=== PATIENT | male | born 1965 | race Caucasian/White ===

== ENCOUNTER 2018-09-15 11:08 | Emergency (ER) | payer BC, OTHER ==
[2018-09-15] MEDS ORDERED: KETOROLAC 60 MG/2 ML VIAL IM STA (12:01)
[2018-09-15] MEDS ORDERED: diazePAM 5 MG TABLET PO STA (12:02)
[2018-09-15] MEDS ORDERED: DEXAMETHASONE 10 MG/ML VIAL PO STA (12:02)
--- NOTE | 2018-09-15 13:03 | ED Physician Documentation ---
PD HPI BACK PAIN - Stated complaint Stated Complaint: BACK INJ/PX - Chief complaint Chief Complaint: Back Pain - History obtained from History obtained from: Patient, Family - History of Present Illness Timing - onset: How many days ago (8) Timing - duration: Days (8) Timing - details: Other (Worse today.) Location: Lower Quality: Pain, Similar to prior episodes Associated symptoms: No: Fever, Weakness, Numbness, Incontinent of urine - Additional information Additional information: The patient is a 53-year-old male with past history of sciatica, who presents with right lower back pain. The pain started 8 days ago and has been waxing and waning since that time, until this morning when it became worse when he bent over to tie his shoes. He denies fever, urinary incontinence, numbness or weakness. The last time he had pain this bad in the past was about one year ago. Review of Systems Constitutional: denies: Fever Nose: denies: Congestion Respiratory: denies: Cough GI: denies: Abdominal Pain, Nausea, Vomiting : denies: Dysuria, Incontinent Skin: denies: Rash Musculoskeletal: reports: Back pain Neurologic: denies: Focal weakness, Numbness, Headache PD PAST MEDICAL HISTORY - Past Medical History Past Medical History: Yes Cardiovascular: Hypertension Respiratory: None Neuro: None Endocrine/Autoimmune: None GI: None : None HEENT: None Psych: None Musculoskeletal: None, Other (Sciatica) Derm: None - Past Surgical History Past Surgical History: Yes Ortho: Spine surgery, Other - Present Medications Home Medications: Ambulatory Orders Medication Instructions Recorded Confirmed Ondansetron Odt [Zofran] 4 mg TL Q6H PRN #14 tablet 08/30/16 Oxycodone HCl/Acetaminophen 1 - 2 each PO Q6H PRN #14 tablet 08/30/16 [Percocet 5-325 mg Tablet] Tamsulosin HCl [Flomax] 0.4 mg PO DAILY #10 tab 08/30/16 Cyclobenzaprine [Flexeril] 10 mg PO TID PRN #20 tablet 09/15/18 Oxycodone HCl/Acetaminophen 1 - 2 each PO Q6H PRN #14 tablet 09/15/18 [Percocet 5-325 mg Tablet] - Allergies Allergies/Adverse Reactions: Allergies Allergy/AdvReac Type Severity Reaction Status Date / Time No Known Drug Allergies Allergy Verified 09/15/18 11:34 - Social History Does the pt smoke?: No Smoking Status: Never smoker Does the pt drink ETOH?: Yes ETOH Use: Liquor Does the pt have substance abuse?: No - Immunizations Immunizations are current?: Yes - POLST Patient has POLST: No PD ED PE NORMAL - Vitals Vital signs reviewed: Yes (hypertensive) - General General: Alert and oriented X 3, Well developed/nourished, Other (Standing at the bedside, in apparent discomfort.) - HEENT HEENT: Atraumatic - Cardiac Cardiac: RRR - Respiratory Respiratory: No respiratory distress - Abdomen Abdomen: Soft, Non tender - Back Back: No CVA TTP, No spinal TTP, Other (Tenderness to palpation over the right sciatic region. No tenderness to palpation over the spinous processes.) - Derm Derm: No rash - Extremities Extremities: No edema, No calf tenderness / cord, Other (Straight leg raise test is positive on the right at 20 elevation; negative on the left.) - Neuro Neuro: Alert and oriented X 3, No motor deficit, No sensory deficit, Other (Deep tendon reflexes are 2+ and equal bilaterally at the patellar and Achilles tendons.) Results - Vitals Vitals: Oxygen O2 Source Room air PD MEDICAL DECISION MAKING - ED course Complexity details: reviewed old records, reviewed results, re-evaluated patient, considered differential, d/w patient, d/w family ED course: The patient's presentation is most consistent with recurrent lower back pain, with sciatica on the right. His presentation does not suggest epidural abscess, cauda equina syndrome, or spinal stenosis. Treatment in the emergency department included administration of ketorolac 60 mg IM, dexamethasone 10 mg orally, and diazepam 5 mg orally. He reports slightly decreased pain after the above treatment. He is being discharged with prescriptions for Flexeril and for Percocet. I discussed with him and his the expected course of illness, symptomatic treatment and outpatient follow-up, as well as potentially worrisome signs or symptoms that should prompt reevaluation in the emergency department. Departure - Departure Disposition: 01 Home, Self Care Clinical Impression: Back pain Qualifiers: Back pain location: low back pain Chronicity: acute Back pain laterality: right Sciatica presence: with sciatica Sciatica laterality: sciatica of right side Qualified Code(s): M54.41 - Lumbago with sciatica, right side Condition: Stable Instructions: ED Sciatica Follow-Up: Richy Saucedo MD [Primary Care Provider] - Prescriptions: Cyclobenzaprine [Flexeril] 10 mg PO TID PRN #20 tablet PRN Reason: Spasms Oxycodone HCl/Acetaminophen [Percocet 5-325 mg Tablet] 1 - 2 each PO Q6H PRN #14 tablet PRN Reason: pain Comments: Apply ice pack to your lower back intermittently for the next 3 days. You can use Flexeril as prescribed if needed for muscle spasms You can use Percocet as prescribed as needed for pain. You can also use ibuprofen, up to 800 mg 3 times daily for its anti-inflammatory effect. Let pain be your guide to activity level. Follow-up with your primary physician within 2 weeks. Call to schedule appointment. Return to the emergency department if you develop increasing pain, fever, increasing numbness or weakness, or otherwise worsening symptoms. Discharge Date/Time: 09/15/18 13:09
[2018-09-15 13:11] VITALS: BP 151/100
== END 2018-09-15 13:09 | disposition home or self-care (01) ==
LOC: ED 11:08
DX: M54.41 Lumbago with sciatica, right side (principal); I10 Essential (primary) hypertension
CPT/HCPCS: 96372; 99283; A9270

== ENCOUNTER 2020-12-23 18:50 | Outpatient (CLI) | payer OTHER | END 2020-12-23 18:51 | disposition critical access hospital (66) | LOC: EMS 18:50 | PROVIDERS: ATTEND Emergency Medicine | DX: M79.651 Pain in right thigh (principal) | CPT/HCPCS: A0425; A0427 ==

== ENCOUNTER 2020-12-23 19:23 | Emergency (ER) | payer OTHER ==
[2020-12-23] MEDS ORDERED: KETOROLAC 30 MG/ML VIAL IVP STA (19:47)
[2020-12-23 20:04] LABS: BASOPHILS % (AUTO) 0.5 %; EOSINOPHILS # (AUTO) 0.1 10^3/uL (0.0-0.7); EOSINOPHILS % (AUTO) 1.1 %; HCT - HEMATOCRIT 44.8 % (42.0-52.0); HGB - HEMOGLOBIN 15.4 g/dL (14.0-18.0); LYMPHOCYTES # (AUTO) 2.2 10^3/uL (1.5-3.5); LYMPHOCYTES % (AUTO) 24.5 %; MEAN CORPUSCULAR HEMOGLOBIN 33.6 pg (27.0-31.0); MEAN CORPUSCULAR HGB CONC 34.4 g/dL (32.0-36.0); MEAN CORPUSCULAR VOLUME 97.6 fL (80.0-94.0); MEAN PLATELET VOLUME 8.9 fL (7.4-11.4); MONOCYTES # (AUTO) 0.8 10^3/uL (0.0-1.0); MONOCYTES % (AUTO) 8.9 %; NEUTROPHILS # (AUTO) 5.7 10^3/uL (1.5-6.6); NEUTROPHILS % (AUTO) 64.5 %; PLT - PLATELET COUNT 230 10^3/uL (130-450); RED BLOOD COUNT 4.59 10^6/uL (4.70-6.10); RED CELL DISTRIBUTION WIDTH 12.1 % (12.0-15.0); WHITE BLOOD COUNT 8.9 x10^3/uL (4.8-10.8)
[2020-12-23 20:13] LABS: CALCIUM 9.3 mg/dL (8.5-10.3); CREATININE 0.8 mg/dL (0.6-1.2); POTASSIUM 3.6 mmol/L (3.5-5.0)
--- NOTE | 2020-12-23 20:49 | XRAY Report ---
PROCEDURE: Knee 3 View RT INDICATIONS: fall with distal femur/knee pain TECHNIQUE: 3 views of the right knee(s) were acquired. COMPARISON: None. FINDINGS: Bones: No fractures or dislocations. No suspicious bony lesions. Soft tissues: No joint effusion. No suspicious soft tissue calcifications. IMPRESSION: Negative examination as above Reviewed by: Jesus Manuel Red MD on 12/23/2020 8:47 PM PST Approved by: Jesus Manuel Red MD on 12/23/2020 8:47 PM PST Station ID: [id number]
--- NOTE | 2020-12-23 21:11 | ED Physician Documentation ---
PD HPI LOWER EXT INJURY - Stated complaint Stated Complaint: R LEG INJURY/GLF - Chief complaint Chief Complaint: Ext Problem - History obtained from History obtained from: Patient, EMS - History of Present Illness PD HPI LOW EXT INJURY LOCATION: Right, Upper leg, Knee Type of injury: Twist (He states he was walking his dog and his legs got wrapped in the leash and he twisted and fell with pain at the right quadriceps and knee. Unable to stand or walk because of weakness and pain around the knee.) Where injury occurred: Home Timing - onset: Today (shortly [employer]) Timing - details: Abrupt onset, Still present Worsened by: No: Moving, Palpating Associated symptoms: Weakness (unable to extend right knee due to weak/pain.). No: Numbness, Tingling Contributing factors: Other (no recent quinolones/abx.). No: Anticoagulated Similar symptoms before: Has not had sx before Recently seen: Not recently seen Review of Systems Constitutional: denies: Fever, Chills Nose: denies: Rhinorrhea / runny nose, Congestion Throat: denies: Sore throat Cardiac: denies: Chest pain / pressure Respiratory: denies: Cough GI: denies: Abdominal Pain Skin: denies: Abrasion (s), Laceration (s) Musculoskeletal: denies: Neck pain, Back pain Neurologic: denies: Altered mental status, Head injury, LOC PD PAST MEDICAL HISTORY - Past Medical History Past Medical History: Yes Cardiovascular: Hypertension, High cholesterol Respiratory: None Neuro: None Endocrine/Autoimmune: None GI: None : None HEENT: None Psych: None Musculoskeletal: None, Other Derm: None - Past Surgical History Past Surgical History: Yes Ortho: Spine surgery, Other - Present Medications Home Medications: Ambulatory Orders Medication Instructions Recorded Confirmed Ondansetron Odt [Zofran] 4 mg TL Q6H PRN #14 tablet 08/30/16 Oxycodone HCl/Acetaminophen 1 - 2 each PO Q6H PRN #14 tablet 08/30/16 [Percocet 5-325 mg Tablet] Tamsulosin HCl [Flomax] 0.4 mg PO DAILY #10 tab 08/30/16 Cyclobenzaprine [Flexeril] 10 mg PO TID PRN #20 tablet 09/15/18 Oxycodone HCl/Acetaminophen 1 - 2 each PO Q6H PRN #14 tablet 09/15/18 [Percocet 5-325 mg Tablet] Naproxen [EC-Naproxen] 500 mg PO BID #20 12/23/20 Oxycodone HCl/Acetaminophen 1 each PO Q6H PRN #15 tablet 12/23/20 [Percocet 5-325 mg Tablet] methocarbamoL [Robaxin] 500 mg PO Q6H PRN #25 tablet 12/23/20 - Allergies Allergies/Adverse Reactions: Allergies Allergy/AdvReac Type Severity Reaction Status Date / Time No Known Drug Allergies Allergy Verified 09/15/18 11:34 - Social History Does the pt smoke?: No Smoking Status: Never smoker Does the pt drink ETOH?: Yes Does the pt have substance abuse?: No - Immunizations Immunizations are current?: Yes - POLST Patient has POLST: No PD ED PE NORMAL - Vitals Vital signs reviewed: Yes - General General: Alert and oriented X 3, Well developed/nourished, Other (appears in pain due to right thigh/knee. ) - Neck Neck: Supple, no meningeal sign, No adenopathy - Cardiac Cardiac: RRR, No murmur - Respiratory Respiratory: Clear bilaterally, Other (no chestwall tenderness) - Abdomen Abdomen: Soft, Non tender - Derm Derm: Normal color, Warm and dry, No rash - Extremities Extremities: Other (The patient has tenderness at the suprapatellar area with a soft divot there where the quadriceps tendon should be. There is tenderness in the distal quadriceps muscle. No effusion at the knee. No obvious bony tenderness. He is unable to extend at the knee.) - Neuro Neuro: Alert and oriented X 3, No sensory deficit, Normal speech Results - Vitals Vitals: Vital Signs - 24 hr 12/23/20 12/23/20 19:48 21:40 Temperature 36.4 C L Heart Rate 90 92 Respiratory 17 14 Rate Blood Pressure 136/84 H 156/91 H O2 Saturation 97 95 Oxygen O2 Source Room air - Labs Labs: Laboratory Tests 12/23/20 12/23/20 19:56 19:56 WBC 8.9 RBC 4.59 L Hgb 15.4 Hct 44.8 MCV 97.6 H MCH 33.6 H MCHC 34.4 RDW 12.1 Plt Count 230 MPV 8.9 Neut # (Auto) 5.7 Lymph # (Auto) 2.2 [place] # (Auto) 0.8 Eos # (Auto) 0.1 Baso # (Auto) 0.0 Absolute Nucleated RBC 0.00 Nucleated RBC % 0.0 Sodium 140 Potassium 3.6 Chloride 104 Carbon Dioxide 22 Anion Gap 14.0 H BUN 16 Creatinine 0.8 Estimated GFR (MDRD) 101 Glucose 189 H Calcium 9.3 - Rads (name of study) right knee Radiology: Prelim report reviewed (no fractures), See rad report PD MEDICAL DECISION MAKING - ED course Complexity details: considered differential (clinically clearly quads tendon disruption), d/w patient, d/w production support consultant (Talked with Dr. Vanessa and on-call for orthopedics who will have his office call the patient tomorrow and he will see him in 2 days in clinic for preop planning.) Departure - Departure Disposition: Home, Self Care Clinical Impression: Fall from slip, trip, or stumble Qualifiers: Encounter type: initial encounter Qualified Code(s): W01.0XXA - Fall on same level from slipping, tripping and stumbling without subsequent striking against object, initial encounter Quadriceps tendon rupture Qualifiers: Encounter type: initial encounter Laterality: right Qualified Code(s): S76.111A - Strain of right quadriceps muscle, fascia and tendon, initial encounter Condition: Stable Record reviewed to determine appropriate education?: Yes Instructions: ED Sprain Knee Follow-Up: Abhay Rhoades MD [Provider Admit Priv/Credential] - Prescriptions: Naproxen [EC-Naproxen] 500 mg PO BID #20 Oxycodone HCl/Acetaminophen [Percocet 5-325 mg Tablet] 1 each PO Q6H PRN #15 tablet PRN Reason: pain methocarbamoL [Robaxin] 500 mg PO Q6H PRN #25 tablet PRN Reason: Spasms Comments: Keep the knee brace in place. You can remove it briefly to change your clothes. Ice elevate and rest your knee often to reduce swelling. Dr. Rhoades's office will call you tomorrow to give you an appointment time for . At that point they will reexamine you and us cough scheduling time for surgery. You have a disruption/tear of the quadriceps tendon just above the knee. This will need repair in order to heal appropriately. You can use some anti-inflammatory such as naproxen twice daily with food. Robaxin muscle relaxant for spasms. To that add Tylenol or oxycodone as needed for pains. Discharge Date/Time: 12/23/20 21:41
[2020-12-23] MEDS ORDERED: HYDROmorphone 1 MG/ML CARPUJECT IVP STA (21:19)
[2020-12-23] MEDS ORDERED: oxyCODONE/ACET 5/325 Prepack 4 PO STA (21:20)
[2020-12-23 21:42] VITALS: BP 156/91
== END 2020-12-23 21:41 | disposition home or self-care (01) ==
LOC: EDUNIT# → ED 19:23
DX: S76.111A Strain of right quadriceps muscle, fascia and tendon, initial encounter (principal); X50.1XXA Overexertion from prolonged static or awkward postures, initial encounter; Y93.K1 Activity, walking an animal; Y92.009 Unspecified place in unspecified non-institutional (private) residence as the place of occurrence of the external cause; I10 Essential (primary) hypertension
CPT/HCPCS: 36415; 73562; 80048; 85025; 96374; 96375; 99284; J1170

== ENCOUNTER 2020-12-26 07:35 | Day surgery (SDC) | payer OTHER ==
[2020-12-26] MEDS ORDERED: ACETAMINOPHEN 1,000 MG/100 ML 100 ML IV ONE (07:54)
[2020-12-26] MEDS ORDERED: CELECOXIB 100 MG CAPSULE PO ONE (07:54)
[2020-12-26] MEDS ORDERED: ceFAZolin 2 GM/50 ML 2 GM/50 ML BAG IV ONE (07:54)
[2020-12-26] MEDS ORDERED: LACTATED RINGERS 1,000 ML IV ONE ×2 (08:08→13:00)
--- NOTE | 2020-12-26 08:40 | ANESTHESIA ---
Pre-Anesthesia VS, & Labs - Diagnosis rupture quadriceps tendon right knee - Procedure repair quadriceps tendon right knee Vital Signs: Temp Pulse Resp BP Pulse Ox 37.0 C 85 16 142/88 H 97 12/26/20 07:58 12/26/20 07:58 12/26/20 07:58 12/26/20 07:58 12/26/20 07:58 Height: 5 ft 6 in Weight (kg): 102.8 kg Body Mass Index: 36.6 BMI Classification: Obese - NPO >8 hours - Lab Results Current Lab Results: Laboratory Tests 12/26/20 08:04: POC Whole Bld Glucose 218 H Home Medications and Allergies Home Medications: Ambulatory Orders Atorvastatin [Lipitor] 40 mg PO DAILY 12/25/20 Losartan [Cozaar] 12.5 mg PO DAILY 12/25/20 Naproxen [EC-Naproxen] 500 mg PO DAILY 12/25/20 amLODIPine [Norvasc] 5 mg PO DAILY 12/25/20 Atorvastatin [Lipitor] 40 mg PO DAILY 12/25/20 Losartan [Cozaar] 12.5 mg PO DAILY 12/25/20 Naproxen [EC-Naproxen] 500 mg PO DAILY 12/25/20 amLODIPine [Norvasc] 5 mg PO DAILY 12/25/20 Allergies/Adverse Reactions: Allergies Allergy/AdvReac Type Severity Reaction Status Date / Time No Known Drug Allergies Allergy Verified 09/15/18 11:34 Anes History & Medical History - Anesthetic History Anesthesia Complications: reports: No previous complications - Medical History Cardiovascular: reports: Hypertension, High cholesterol Pulmonary: reports: None Gastrointestinal: reports: Chronic constipation Urinary: reports: None Neuro: reports: None Musculoskeletal: reports: None Endocrine/Autoimmune: reports: None Blood Disorders: reports: None Skin: reports: None Smoking Status: Never smoker Psychosocial: reports: Alcohol (daily use), Cannabis History of Cancer?: No - Surgical History Orthopedic: reports: Spine surgery, Other Exam General: Alert, Oriented x3, Cooperative, No acute distress Dental: WNL Mouth Openin Fingerbreadth Neck Mobility: Normal Mallampati classification: II Thyromental Distance: 4-6 cm Respiratory: Lungs clear, Normal breath sounds, No respiratory distress, No accessory muscle use Cardiovascular: Regular rate, Normal S1, Normal S2, No murmurs Mental/Cognitive Status: Alert/Oriented X3, Normal for patient Plan Anesthesia Type: General, Femoral Block (right) Regional Block: Per Surgeon's request for Post Op pain control Consent for Procedure(s) Verified and Reviewed: Yes Code Status: Attempt Resuscitation ASA classification: 2-Mild systemic disease Is this case an emergency?: No
[2020-12-26 08:47] LABS: B. PARAPERTUSSIS- RESP PCR PAN NOT DETECTED; B. PERTUSSIS- RESP PCR PANEL NOT DETECTED; C. PNEUMONIAE- RESP PCR PANEL NOT DETECTED; CORONAVIRUS 229E-RESP PCR NOT DETECTED; CORONAVIRUS HKU1-RESP PCR NOT DETECTED; CORONAVIRUS NL63-RESP PCR NOT DETECTED; CORONAVIRUS OC43-RESP PCR NOT DETECTED; HUMAN METAPNEUMOVIRUS NOT DETECTED; INFLUENZA A- RESP PCR PANEL NOT DETECTED; INFLUENZA B - RESP PCR PANEL NOT DETECTED; M. PNEUMONIAE- RESP PCR PANEL NOT DETECTED; PARAINFLUENZA VIRUS 1 NOT DETECTED; PARAINFLUENZA VIRUS 2 NOT DETECTED; PARAINFLUENZA VIRUS 3 NOT DETECTED; PARAINFLUENZA VIRUS 4 NOT DETECTED; RHINOVIRUS/ENTEROVIRUS NOT DETECTED; RSV- RESP PCR PANEL NOT DETECTED; SARS-CoV-2 -RESP PCR PANEL NOT DETECTED
[2020-12-26] MEDS ORDERED: MIDAZOLAM 2 MG/2 ML VIAL ONE (10:33)
[2020-12-26] MEDS ORDERED: fentaNYL 100 MCG/2 ML VIAL ONE ×2 (10:33→11:36)
[2020-12-26] MEDS ORDERED: PROPOFOL 200 MG/20 ML VIAL IVP ONE ×2 (10:36→11:11)
[2020-12-26] MEDS ORDERED: LIDOCAINE-MPF 2% 5 ML VIAL ONE (10:36)
[2020-12-26] MEDS ORDERED: ROPIVACAINE 0.5% PF 20 ML AMPULE ONE (10:39)
[2020-12-26] MEDS ORDERED: DEXAMETHASONE 10 MG/ML VIAL ONE (10:51)
[2020-12-26] MEDS ORDERED: ONDANSETRON 4 MG/2 ML VIAL ONE (11:20)
[2020-12-26] MEDS ORDERED: DEXAMETHASONE 4 MG/ML VIAL ONE (11:20)
[2020-12-26] MEDS ORDERED: ONDANSETRON 4 MG/2 ML VIAL IVP PRN (11:27)
[2020-12-26] MEDS ORDERED: ATROPINE ABBOJECT 1 MG/10 ML SYRINGE IVP PRN (11:27)
[2020-12-26] MEDS ORDERED: NALOXONE 0.4 MG/ML VIAL IVP PRN (11:27)
[2020-12-26] MEDS ORDERED: METOCLOPRAMIDE 10 MG/2 ML VIAL IVP PRN (11:27)
[2020-12-26] MEDS ORDERED: MORPHINE 2 MG/ML CARPUJECT IVP PRN (11:27)
[2020-12-26] MEDS ORDERED: ePHEDrine 50 MG/ML VIAL IVP PRN (11:27)
[2020-12-26] MEDS ORDERED: HYDROmorphone 0.5 MG/0.5 ML SYRINGE IVP PRN (11:27)
[2020-12-26] MEDS ORDERED: fentaNYL 100 MCG/2 ML VIAL IVP PRN (11:27)
[2020-12-26] MEDS ORDERED: BUPIVACAINE 0.5% PF 30 ML VIAL ONE (11:32)
[2020-12-26] MEDS ORDERED: BUPIVACAINE 0.5% PF 30 ML VIAL INFIL ONE ×2 (11:32)
[2020-12-26] MEDS ORDERED: LACTATED RINGERS 1,000 ML IV SCH (12:00)
[2020-12-26] MEDS ORDERED: KETOROLAC 30 MG/ML VIAL ONE (13:00)
--- NOTE | 2020-12-26 13:05 | OPERATIVE REPORT ---
Operative Report - General Procedure Date: 12/26/20 Planned Procedure: Repair of quadriceps tendon rupture right knee Pre-Op Diagnosis: Complete rupture quadriceps tendon right knee Procedure Performed: Repair of quadriceps tendon rupture right knee Post Op Diagnosis: Same as preoperative diagnosis - Procedure Note Primary Surgeon: Abhay Rhoades MD Anesthesia Provider: Darrell Vargas CRNA Anesthesia Technique: General ET tube, Regional block Estimated Blood Loss (mL): 50 Indications: This is a 55-year-old man who took a fall and sustained isolated pain and swelling to the right knee. He had palpable defect above the patella with inability to actively extend right knee and this was associated with marked pain. His routine radiographs were normal to right knee. He is normally active in terms of walking and activities. Findings: There was a complete quadriceps tendon rupture just within 2 cm or less of the patella. There was a hematoma at the rupture site. Complications: None - Other Other Information/Narrative: Patient was brought to the operating room table placed in a supine position with a padded bump beneath the right buttock. A pneumatic tourniquet was applied to the proximal right thigh was not utilized during the procedure. The right lower extremity was prepped and draped in a sterile manner in the usual fashion. A timeout procedure was performed by the entire operating room team and all were in agreement. A midline longitudinal incision was made over the anterior aspect of the knee and patella. The quadriceps tendon rupture was easily identified with relatively large hematoma that was evacuated at the rupture site. The superior pole of the patella was freshened with a curette and rongeur to obtain a cancellous surface. 3 drill holes were made from proximal to distal using a 2.5 mm drill bit. The drill bits exited in the proximal patellar tendon. #5 Arthrex FiberWire suture was then placed using a Krakw locking stitch from proximal to distal. 4 strands of suture were placed. The sutures were then taken through the patellar tunnels. The central drill hole had 2 sutures which were passed from proximal to distal using a suture passer. The sutures were tied with the knee in extension. The medial lateral retinaculum was repaired with #1 Vicryl suture. The subcutaneous tissue was closed with 2-0 Vicryl. The skin was closed with stainless steel edy. Xeroform and a sterile dressing was applied to the incision. A well-padded long leg splint was applied to the right knee to hold the knee in near full extension. The knee was stable at the end of the procedure and had easily 45 to 50 degrees of flexion. He tolerated the procedure well.
[2020-12-26] MEDS ORDERED: HYDROcod/ACETAM 10 MG/325 MG TABLET PO PRN ×2 (13:12→13:26)
[2020-12-26] MEDS ORDERED: HYDROcod/ACETAM 5/325 MG TABLET PO PRN ×2 (13:12→13:26)
[2020-12-26] MEDS ORDERED: KETOROLAC 15 MG/ML VIAL IVP STA (13:26)
--- NOTE | 2020-12-26 13:43 | ANESTHESIA POST OP EVALUATION ---
Anesthesia Post Eval - Post Anesthesia Eval Vitals: Last Vital Signs Temp 36.9 C 12/26/20 13:20 Pulse 89 12/26/20 13:31 Resp 94 H 12/26/20 13:31 BP 127/91 H 12/26/20 13:31 Pulse Ox 17 L 12/26/20 13:31 CV Function Including HR & BP: positive: Stable Pain Control: positive: Satisfactory Nausea & Vomiting: positive: Negative Mental Status: positive: Baseline Respiratory Status: Airway Patent Hydration Status: Satisfactory Anesthesia Complications: positive: None
[2020-12-26 14:30] VITALS: BP 138/74
== END 2020-12-26 07:36 | disposition home or self-care (01) ==
LOC: SDS 07:35
PROVIDERS: ATTEND Orthopaedic Surgery
PROC: 0KQQ0ZZ Repair Right Upper Leg Muscle, Open Approach (ICD-10-PCS; principal; 2020-12-26 10:00)
DX: S76.111A Strain of right quadriceps muscle, fascia and tendon, initial encounter (principal); W10.9XXA Fall (on) (from) unspecified stairs and steps, initial encounter; Y92.008 Other place in unspecified non-institutional (private) residence as the place of occurrence of the external cause; I10 Essential (primary) hypertension; J45.909 Unspecified asthma, uncomplicated; M51.36 Other intervertebral disc degeneration, lumbar region; E78.00 Pure hypercholesterolemia, unspecified; Z72.89 Other problems related to lifestyle; E66.9 Obesity, unspecified; Z68.36 Body mass index [BMI] 36.0-36.9, adult; Z20.822 Contact with and (suspected) exposure to COVID-19; Z79.899 Other long term (current) drug therapy; Z87.891 Personal history of nicotine dependence
CPT/HCPCS: 0202U; 27385; A9270; J0131; J0690; J7120

== ENCOUNTER 2021-01-23 07:12 | Outpatient (CLI) | payer OTHER ==
--- NOTE | 2021-01-23 08:52 | XRAY Report ---
PROCEDURE: Knee Standing RT INDICATIONS: QUADRICEP TENDON RUPTURE TECHNIQUE: Right knee. COMPARISON: 12/23/2020 FINDINGS: Bones: No acute fractures or dislocations. No suspicious bony lesions. Joint spaces appear normal with weightbearing. Soft tissues: There is soft tissue swelling a moderate-sized right joint effusion. No suspicious soft tissue calcification. IMPRESSION: 1. No acute osseous abnormality. 2. Soft tissue swelling in right joint effusion. Reviewed by: Fortino Luna on 01/23/2021 8:50 AM PDT Approved by: Fortino Luna on 01/23/2021 8:50 AM PDT Station ID: [id number]
== END 2021-01-23 23:59 | disposition home or self-care (01) ==
LOC: DI.N 07:12
PROVIDERS: ATTEND Physician Assistant
DX: M66.88 Spontaneous rupture of other tendons, other sites (principal); M25.461 Effusion, right knee

== ENCOUNTER 2023-02-21 07:00 | Outpatient (CLI) | payer OTHER ==
--- NOTE | 2023-02-21 16:36 | XRAY Report ---
PROCEDURE: Chest 2 View X-Ray INDICATIONS: DYSPHAGIA TECHNIQUE: 2 views of the chest were acquired. COMPARISON: None. FINDINGS: Surgical changes and devices: None. Lungs and pleura: No pleural effusions or pneumothorax. Lungs are clear. Mediastinum: Mediastinal contours appear normal. Heart size is normal. Bones and chest wall: No suspicious bony lesions. Overlying soft tissues appear unremarkable. IMPRESSION: No acute process. Reviewed by: Milan Izquierdo MD on 02/21/2023 4:35 PM PDT Approved by: Milan Izquierdo MD on 02/21/2023 4:35 PM PDT Station ID: [id number]
== END 2023-02-21 23:59 | disposition home or self-care (01) ==
LOC: DI.S 07:00
PROVIDERS: ATTEND Emergency Medicine
DX: R13.10 Dysphagia, unspecified (principal)

== ENCOUNTER 2023-08-30 10:56 | Outpatient (CLI) | payer OTHER ==
--- NOTE | 2023-08-30 14:43 | XRAY Report ---
PROCEDURE: Ribs w/PA Chest LT INDICATIONS: SMALL CELL LUNG CARCINOMA TECHNIQUE: 2 views of the left ribs were acquired, along with a single view chest. COMPARISON: 02/21/2023 FINDINGS: Surgical changes and devices: Right IJ Mediport. Bones and chest wall: No fractures or dislocations. No suspicious bony lesions. Overlying soft tis sues appear unremarkable. Lungs and pleura: No pleural effusions or pneumothorax. Lungs appear clear. Mediastinum: Mediastinal contours appear normal. Heart size is normal. IMPRESSION: No suspicious bone lesions or rib fracture. No changes in the underlying lung. Reviewed by: Yi Chaudhry MD on 08/30/2023 2:42 PM PST Approved by: Yi Chaudhry MD on 08/30/2023 2:42 PM PST Station ID: [id number]
== END 2023-08-30 10:57 | disposition home or self-care (01) ==
LOC: DI 10:56
PROVIDERS: ATTEND Internal Medicine Hematology & Oncology
DX: R53.83 Other fatigue (principal); R07.81 Pleurodynia; Z92.3 Personal history of irradiation; C34.90 Malignant neoplasm of unspecified part of unspecified bronchus or lung

== ENCOUNTER 2023-09-23 04:16 | Outpatient (CLI) | payer OTHER | END 2023-09-23 04:17 | disposition critical access hospital (66) | LOC: EMS 04:16 | DX: R10.84 Generalized abdominal pain (principal) | CPT/HCPCS: A0425; A0427 ==

== ENCOUNTER 2023-09-23 04:51 | Emergency (ER) | payer OTHER ==
[2023-09-23 05:07] LABS: HCT - HEMATOCRIT 47.5 % (42.0-52.0); HGB - HEMOGLOBIN 15.4 g/dL (14.0-18.0); LYMPHOCYTES # (AUTO) 0.4 10^3/uL (1.5-3.5); LYMPHOCYTES % (AUTO) 11.3 %; MEAN CORPUSCULAR HEMOGLOBIN 30.7 pg (27.0-31.0); MEAN CORPUSCULAR HGB CONC 32.4 g/dL (32.0-36.0); MEAN CORPUSCULAR VOLUME 94.8 fL (80.0-94.0); MEAN PLATELET VOLUME 10.1 fL (7.4-11.4); MONOCYTES # (AUTO) 0.5 10^3/uL (0.0-1.0); MONOCYTES % (AUTO) 15.9 %; NEUTROPHILS # (AUTO) 2.2 10^3/uL (1.5-6.6); NEUTROPHILS % (AUTO) 70.2 %; PLT - PLATELET COUNT 91 10^3/uL (130-450); RED BLOOD COUNT 5.01 10^6/uL (4.70-6.10); RED CELL DISTRIBUTION WIDTH 16.1 % (12.0-15.0); WHITE BLOOD COUNT 3.1 x10^3/uL (4.8-10.8)
[2023-09-23] MEDS ORDERED: ONDANSETRON 4 MG/2 ML VIAL IVP STA (05:08)
[2023-09-23 05:19] LABS: ALBUMIN 3.8 g/dL (3.2-5.5); ALBUMIN/GLOBULIN RATIO 1.3 (1.0-2.2); BILIRUBIN,TOTAL 0.4 mg/dL (0.2-1.0); CALCIUM 11.7 mg/dL (8.5-10.3); CREATININE 0.6 mg/dL (0.6-1.3); POTASSIUM 3.4 mmol/L (3.5-4.5); TOTAL PROTEIN 6.8 g/dL (6.4-8.9)
[2023-09-23] MEDS ORDERED: HYDROmorphone 1 MG/ML CARPUJECT IVP STA (05:21)
[2023-09-23] MEDS ORDERED: SODIUM CHLORIDE 0.9% 1,000 ML IV STA (05:22)
[2023-09-23] MEDS ORDERED: iohexoL-300 100 ML VIAL IVP ONE (06:25)
--- NOTE | 2023-09-23 06:34 | ED Physician Documentation ---
History of Present Illness - Stated complaint Stated Complaint: ABD PAIN, CA - Chief complaint Chief Complaint: Abd Pain - History obtained from History obtained from: Patient - Additonal information Additional information: 58yM with pmh metastatic cancer (brain, liver, stomach) s/p chemo and radiation, completed a couple weeks ago, p/w diffuse abdominal pain since that time that is severe, constant, aching, nonradiating. also with nbnb n/v, though patient denies nausea at present. denies fever, diarrhea, hematemesis, uri symptoms, urinary sx. PD PAST MEDICAL HISTORY - Past Medical History Cardiovascular: Hypertension, High cholesterol Respiratory: None Neuro: None Endocrine/Autoimmune: None GI: Chronic constipation : None HEENT: Chronic vision loss Psych: None Musculoskeletal: None Derm: None - Past Surgical History Past Surgical History: Yes Ortho: Spine surgery, Other - Present Medications Home Medications: Ambulatory Orders Medication Instructions Recorded Confirmed Ondansetron Odt [Zofran] 4 mg TL Q6H PRN #14 tablet 08/30/16 07/25/23 Cyclobenzaprine [Flexeril] 10 mg PO TID PRN #20 tablet 09/15/18 07/25/23 Naproxen [EC-Naproxen] 500 mg PO BID #20 12/23/20 07/25/23 Oxycodone HCl/Acetaminophen 1 each PO Q6H PRN #15 tablet 12/23/20 07/25/23 [Percocet 5-325 mg Tablet] methocarbamoL [Robaxin] 500 mg PO Q6H PRN #25 tablet 12/23/20 07/25/23 Atorvastatin [Lipitor] 40 mg PO DAILY 12/25/20 07/25/23 Losartan [Cozaar] 12.5 mg PO DAILY 12/25/20 07/25/23 Naproxen [EC-Naproxen] 500 mg PO DAILY 12/25/20 07/25/23 amLODIPine [Norvasc] 5 mg PO DAILY 12/25/20 07/25/23 OLANZapine [Olanzapine] 5 mg PO DAILY PRN 04/12/23 07/25/23 Lidocaine/Prilocain 2.5% Cream 5 gm TOP PRN PRN 04/25/23 07/25/23 [Emla 2.5% Cream] Omeprazole 20 mg PO DAILY 09/05/23 09/05/23 Sucralfate [Carafate] 1 gm PO PRN PRN 09/05/23 09/05/23 HYDROcodone/ACET 10/325 [[place] 10 1 tablet PO Q4-6H PRN #30 tablet 09/23/23 mg/325 mg] Sennosides/Docusate Sodium 1 each PO QDAC PRN #30 tablet 09/23/23 [Senna-Docusate Sodium Tablet] polyethylene glycoL 3350 [Miralax] 17 gm PO DAILY #15 packet 09/23/23 - Allergies Allergies/Adverse Reactions: Allergies Allergy/AdvReac Type Severity Reaction Status Date / Time No Known Drug Allergies Allergy Verified 05/16/23 12:17 - Social History Does the pt smoke?: No Smoking Status: Never smoker Does the pt drink ETOH?: Yes Does the pt have substance abuse?: No - Immunizations Immunizations are current?: Yes - POLST Patient has POLST: No PD ED PE NORMAL - Vitals Vital signs reviewed: Yes - General General: Alert and oriented X 3, Other (deconditioned appearing) - HEENT HEENT: Atraumatic, PERRL, EOMI - Neck Neck: Supple, no meningeal sign - Cardiac Cardiac: RRR - Respiratory Respiratory: No respiratory distress, Clear bilaterally - Abdomen Abdomen: Other (diffusely ttp) - Derm Derm: Normal color, Warm and dry - Neuro Neuro: No motor deficit, No sensory deficit - Psych Psych: Normal mood, Normal affect Results - Vitals Vitals: Vital Signs - 24 hr 09/23/23 09/23/23 04:56 06:43 Temperature 37 C 36.8 C Heart Rate 89 72 Respiratory 20 20 Rate Blood Pressure 138/74 H 130/74 O2 Saturation 92 100 Oxygen O2 Source Room air - Labs Labs: Laboratory Tests 09/23/23 09/23/23 09/23/23 05:00 05:00 06:22 WBC 3.1 L RBC 5.01 Hgb 15.4 Hct 47.5 MCV 94.8 H MCH 30.7 MCHC 32.4 RDW 16.1 H Plt Count 91 L MPV 10.1 Neut # (Auto) 2.2 Lymph # (Auto) 0.4 L [place] # (Auto) 0.5 Eos # (Auto) 0.0 Baso # (Auto) 0.0 Absolute Nucleated RBC 0.00 Nucleated RBC % 0.0 Sodium 139 Potassium 3.4 L Chloride 101 Carbon Dioxide 29 Anion Gap 9.0 BUN 14 Creatinine 0.6 Estimated GFR (MDRD) 139 Glucose 212 H Calcium 11.7 H Total Bilirubin 0.4 AST 67 H ALT 67 H Alkaline Phosphatase 177 H Total Protein 6.8 Albumin 3.8 Globulin 3.0 Albumin/Globulin Ratio 1.3 Lipase 45 Urine Color YELLOW Urine Clarity HAZY Urine pH 6.0 Ur Specific [place] <=1.005 Urine Protein NEGATIVE Urine Glucose (UA) NEGATIVE Urine Ketones NEGATIVE Urine Occult Blood NEGATIVE Urine Nitrite NEGATIVE Urine Bilirubin NEGATIVE Urine Urobilinogen 0.2 (NORMAL) Ur Leukocyte Esterase NEGATIVE Urine RBC 0-5 Urine WBC 0-3 Ur Squamous Epith Cells NONE SEEN Amorphous Sediment Few Urine Bacteria None Seen Urine Casts 0-2 Hyaline Casts Ur Microscopic Review INDICATED Urine Culture Comments NOT INDICATED PD Medical Decision Making - ED course ED course: 58yM presents to the ED with chronic cancer pain to abdomen for the past couple weeks. cbc, abdominal panel stable from previous except for new hypercalcemia, likely cancer related. calcium 11.7. patient had improvement in pain s/p 1mg IV dilaudid. repeat abdominal exam nontender. IVF ordered and CT a/p ordered. CT shows incidental intussusception as well as large stool burden in addition to metastatic cancer. pain well controlled therefore plan to f/u outpatient with his oncologist. Prescriptions for stool regimen and pain medication sent to pharmacy. Return precautions given. Departure - Departure Disposition: 01 Home, Self Care Clinical Impression: Abdominal pain, Metastatic cancer to bone, Stomach cancer, Hypercalcemia, Constipation Condition: Stable Instructions: Abdominal Pain Prescriptions: polyethylene glycoL 3350 [Miralax] 17 gm PO DAILY #15 packet HYDROcodone/ACET 10/325 [[place] 10 mg/325 mg] 1 tablet PO Q4-6H PRN #30 tablet PRN Reason: Pain >8 Sennosides/Docusate Sodium [Senna-Docusate Sodium Tablet] 1 each PO QDAC PRN #30 tablet PRN Reason: Constipation Comments: You were seen in the emergency department for abdominal pain and received IV dilaudid. Your CT showed metastatic cancer, some incidental gut shortening, and a large amount of stool. Prescription for pain medicine and stool regimen sent to [facility]. Please follow-up with your Oncologist and return to the emergency department if you have any new or worsening symptoms or other concerns. Forms: PCP List
[2023-09-23 06:38] LABS: BILIRUBIN,URINE NEGATIVE (NEGATIVE); GLUCOSE, URINE (UA) NEGATIVE (NEGATIVE); KETONES,URINE (UA) NEGATIVE (NEGATIVE); LEUKOCYTE ESTERASE, URINE NEGATIVE (NEGATIVE); NITRITE,URINE NEGATIVE (NEGATIVE); OCCULT BLOOD,URINE NEGATIVE (NEGATIVE); PROTEIN,URINE NEGATIVE (NEGATIVE); UROBILINOGEN,URINE 0.2 (NORMAL) E.U./dL (NORMAL)
[2023-09-23 06:46] VITALS: BP 130/74; O2SAT 100
[2023-09-23 06:46] LABS: CLARITY,URINE HAZY (CLEAR)
[2023-09-23 06:47] LABS: AMORPHOUS SEDIMENT,UR Few /LPF; BACTERIA,URINE None Seen /HPF (None Seen); RBC,URINE 0-5 /HPF (0-5); SQUAMOUS EPITHELIAL CELL,UR NONE SEEN (<= Few); WBC,URINE 0-3 /HPF (0-3)
--- NOTE | 2023-09-23 09:25 | CT Report ---
PROCEDURE: ABDOMEN/PELVIS W INDICATIONS: diffuse abdominal pain, hx stomach cancer CONTRAST: Omni 300 100ml TECHNIQUE: After the administration of IV contrast, 5 mm thick sections acquired from the diaphragms to the symp hysis. 5 mm thick coronal and sagittal reformats were acquired. For radiation dose reduction, the f ollowing was used: automated exposure control, adjustment of mA and/or kV according to patient size. COMPARISON: CT abdomen and pelvis, 08/30/2016 FINDINGS: Image quality: Excellent. Lung bases and heart: Bibasilar atelectasis. There is fluid and mild distention of the distal esopha magnus. Liver: There are vague hepatic hypodensities, suspicious for liver metastases. Gallbladder and biliary tree: Spleen: No splenomegaly. Pancreas: No pancreatic ductal dilation. Adrenals: No adrenal nodule. Kidneys and ureters: No hydronephrosis. No renal cystic lesion which requires follow up. No solid mas s. Bowel and peritoneum: There are masses in the gastric cardia and gastroesophageal junction. -Gastric cardia mass; series 2 image 18; measuring 2.4 cm. -Gastric cardia mass; series 2 image 21l; measuring 2.6 x 2.2 cm -GE junction mass; series 2 image 18; measuring 1.7 x 3.1 cm No bowel distension. 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 "Target" appearance of a loop of small intestine in the right mid abdomen, consistent with transient intussusception. No findi ngs to suggest small bowel obstruction. No pathologic free fluid. There is a large amount stool in co villa. Sigmoid diverticulosis without diverticulitis. Lymph nodes: Enlarged lymph nodes are present upper abdomen. -A rola mass left of the aorta adjacent to the SMA above the renal vein measuring 4.9 x 3.0 cm; seri es 2 image 30. Vessels: No infrarenal aortic aneurysm. PELVIS Reproductive organs: Unremarkable. Bladder: No abnormal wall thickening, accounting for underdistension. Pelvic lymph nodes: No pelvic adenopathy by size criteria. Bones: There are innumerable small lytic bone lesions involving the inferior sternum, visualized lowe r thoracic spine, lumbar spine, sacrum, bony pelvis, multiple ribs bilaterally, possibly left proxima l femurs bilaterally, consistent with osseous metastasis,. Other: No significant ventral or inguinal hernia. IMPRESSION: 1. Masses in gastric cardia and GE junction consistent with neoplasm. 2. Lymphadenopathy in upper abdomen consistent with rola metastases. 3. Extensive osseous metastatic disease. 4. Multiple vague hypodense lesions in liver suspicious for hepatic metastases. 5. Fluid-filled distal esophagus with mild distention. Differential diagnoses are low grade GE juncti on obstruction versus gastroesophageal reflux. 6. Congenital intestinal malrotation. No significant discrepancy with the preliminary interpretation. Reviewed by: Anson Butler MD on 09/23/2023 9:24 AM PST Approved by: Anson Butler MD on 09/23/2023 9:24 AM PST Station ID: [id number]
== END 2023-09-23 08:25 | disposition home or self-care (01) ==
LOC: EDUNIT# → ED 04:51
DX: G89.3 Neoplasm related pain (acute) (chronic) (principal); R10.9 Unspecified abdominal pain; E83.52 Hypercalcemia; K59.00 Constipation, unspecified; C16.9 Malignant neoplasm of stomach, unspecified; C79.51 Secondary malignant neoplasm of bone
CPT/HCPCS: 36415; 74177; 80053; 81001; 83690; 85025; 96361; 96374; 96375; 99284; J1170; Q9967; 81003; 87086

== ENCOUNTER 2023-09-24 00:16 | Outpatient (CLI) | payer OTHER | END 2023-09-24 23:59 | disposition critical access hospital (66) | LOC: EMS 00:16 | DX: G89.3 Neoplasm related pain (acute) (chronic) (principal); R19.8 Other specified symptoms and signs involving the digestive system and abdomen | CPT/HCPCS: A0425; A0427 ==

== ENCOUNTER 2023-09-24 00:50 | Emergency (ER) | payer OTHER ==
--- NOTE | 2023-09-24 00:49 | ED Physician Documentation ---
PD HPI ABD PAIN - Stated complaint Stated Complaint: ABD/L FLANK PX - History obtained from History obtained from: Patient, EMS - History of Present Illness Recently seen: Emergency Dept - Additional information Additional information: RUPERT. HPI from patient. Patient was treated and released from this emergency department yesterday for similar complaints. He returns due to ongoing abdominal pain, diffuse, described as cramping, waxing and waning without apparent exacerbating or ameliorating factors. He notes that tonight, the pain is more pronounced in the left flank and left paralumbar area. He feels he might be constipated, has not had a bowel movement in 2 days. Patient's pain this evening was as high as 10 out of 10, patient says it is a 6 out of 10 on arrival after having received a total of 8 mg morphine sulfate IV by EMS. Patient had blood tests and CT of the abdomen pelvis yesterday in the emergency department. There were number of abnormalities, although none of them seem to explain the pain he was having. He was prescribed multiple medications including Vicodin, which she was able to obtain, and MiraLAX, which was not ready when the picked up the medications and thus patient has not yet had any of the MiraLAX as of yet. He did take 2 Dulcolax earlier this evening without results. He denies fever, denies nausea/vomiting. 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 Despite the pathology of the biopsied mass, he has not had any pulmonary lesions. Review of Systems Constitutional: denies: Fever Cardiac: reports: Reviewed and negative Respiratory: reports: Reviewed and negative GI: reports: Abdominal Pain, Constipation. denies: Abdominal Swelling, Nausea, Vomiting, Diarrhea, Hematemesis, Bloody / black stool : denies: Dysuria, Frequency Skin: denies: Rash Musculoskeletal: reports: Back pain Neurologic: denies: Focal weakness, Numbness PD PAST MEDICAL HISTORY - Past Medical History Past Medical History: Yes - Present Medications Home Medications: Ambulatory Orders Medication Instructions Recorded Confirmed Ondansetron Odt [Zofran] 4 mg TL Q6H PRN #14 tablet 08/30/16 07/25/23 Cyclobenzaprine [Flexeril] 10 mg PO TID PRN #20 tablet 09/15/18 07/25/23 Naproxen [EC-Naproxen] 500 mg PO BID #20 12/23/20 07/25/23 Oxycodone HCl/Acetaminophen 1 each PO Q6H PRN #15 tablet 12/23/20 07/25/23 [Percocet 5-325 mg Tablet] methocarbamoL [Robaxin] 500 mg PO Q6H PRN #25 tablet 12/23/20 07/25/23 Atorvastatin [Lipitor] 40 mg PO DAILY 12/25/20 07/25/23 Losartan [Cozaar] 12.5 mg PO DAILY 12/25/20 07/25/23 Naproxen [EC-Naproxen] 500 mg PO DAILY 12/25/20 07/25/23 amLODIPine [Norvasc] 5 mg PO DAILY 12/25/20 07/25/23 OLANZapine [Olanzapine] 5 mg PO DAILY PRN 04/12/23 07/25/23 Lidocaine/Prilocain 2.5% Cream 5 gm TOP PRN PRN 04/25/23 07/25/23 [Emla 2.5% Cream] Omeprazole 20 mg PO DAILY 09/05/23 09/05/23 Sucralfate [Carafate] 1 gm PO PRN PRN 09/05/23 09/05/23 HYDROcodone/ACET 10/325 [[place] 10 1 tablet PO Q4-6H PRN #30 tablet 09/23/23 mg/325 mg] Sennosides/Docusate Sodium 1 each PO QDAC PRN #30 tablet 09/23/23 [Senna-Docusate Sodium Tablet] polyethylene glycoL 3350 [Miralax] 17 gm PO DAILY #15 packet 09/23/23 HYDROmorphone [Dilaudid] 2 - 4 mg PO Q4H PRN #20 tablet 09/24/23 - Allergies Allergies/Adverse Reactions: Allergies Allergy/AdvReac Type Severity Reaction Status Date / Time No Known Drug Allergies Allergy Verified 09/24/23 01:04 PD ED PE NORMAL - Vitals Vital signs reviewed: Yes - General General: Alert and oriented X 3, No acute distress, Well developed/nourished - HEENT HEENT: Moist mucous membranes - Neck Neck: Supple, no meningeal sign - Cardiac Cardiac: RRR, No murmur - Respiratory Respiratory: No respiratory distress, Clear bilaterally - Abdomen Abdomen: Soft, Non tender, Non distended - Derm Derm: Normal color, Warm and dry, No rash - Extremities Extremities: No edema - Neuro Neuro: Alert and oriented X 3 Results - Vitals Vitals: Oxygen O2 Source Room air - Labs Labs: Laboratory Tests 09/24/23 09/24/23 09/24/23 01:01 01:01 02:50 WBC 4.8 RBC 5.17 Hgb 15.7 Hct 48.9 MCV 94.6 H MCH 30.4 MCHC 32.1 RDW 15.9 H Plt Count 90 L MPV 10.8 Neut # (Auto) 3.7 Lymph # (Auto) 0.3 L [place] # (Auto) 0.7 Eos # (Auto) 0.0 Baso # (Auto) 0.0 Absolute Nucleated RBC 0.00 Nucleated RBC % 0.0 Sodium 139 Potassium 3.4 L Chloride 100 L Carbon Dioxide 31 Anion Gap 8.0 BUN 9 Creatinine 0.6 Estimated GFR (MDRD) 139 Glucose 137 H Calcium 12.0 H* Total Bilirubin 0.6 AST 63 H ALT 63 H Alkaline Phosphatase 155 H Total Protein 7.0 Albumin 4.0 Globulin 3.0 Albumin/Globulin Ratio 1.3 Lipase 43 Urine Color YELLOW Urine Clarity CLEAR Urine pH 6.0 Ur Specific [place] <=1.005 Urine Protein NEGATIVE Urine Glucose (UA) NEGATIVE Urine Ketones NEGATIVE Urine Occult Blood NEGATIVE Urine Nitrite NEGATIVE Urine Bilirubin NEGATIVE Urine Urobilinogen 0.2 (NORMAL) Ur Leukocyte Esterase NEGATIVE Ur Microscopic Review NOT INDICATED Urine Culture Comments NOT INDICATED - Rads (name of study) abd. series (xrays) Relevant Findings:: Prelim report reviewed, See rad report PD Medical Decision Making - ED course Complexity details: reviewed old records, reviewed results, re-evaluated patie nt, considered differential, d/w patient ED course: T+R from this ED yesterday for similar symptoms, returns due to ongoing abdominal pain. He had significant relief en route with 8mg morphine sulfate. No concerning findings on CBC (90 platelets approximates his baseline compared to previous), normal UA. He again has hypercalcemia (12.0), and certainly this could be causing, or contributing to, his constipation. The hypercalcemia might benefit from outpatient w/u; possible cause would include the multiple osseous lesions on yesterday's CT scan. Abdominal series xrays are unremrakble; no evidence of bowel obstruction. On my interpretation, I believe there is a moderate amount of colonic stool burden. Patient says he feels constipated, having not had a BM x 2 days (which is unusual for him). He is given 30ml MOM PO and glycerin enema followed by soap suds enema. This eventually resulted in moderate stool output. Unclear if he had relief from the BM or the medications given during ED stay which included 1mg dilaudid IV x 2 doses. I reviewed results with patient and spouse (in ED at bedside). I also expressed that I am not confident his pain is due to consti pation (the left-sided predominance would correlate with the moderate amount of stool noted at splenic flexure and in descending colon, but pain worse with movement and his more diffuse pain do not seem particularly s/o constipation, also considering there is arguably not an inordinate stool burden as per radiologist's interpretation of tonight's xrays). However, given the results of tonight's tests combined with those performed yesterday which included CT A/P without findings to suggest etiology of his symptoms, further emergent testing is not indicated at this time. He is in NAD on reevaluation prior to d/c. Return precautions were meticulously reviewed. I am e-prescribing 2mg hydromorphone with explicit instruction to not use this medication within 6 hours of the previously-prescribed hydrocodone/acetaminophen. I instructed him to contact both his oncologist as well as his PCP when the offices are next open to arrange for immediate follow up/reevaluation. I am prescribing a short course of short-acting opioid pain medication for this patient. I have reviewed the patients [employer]IAL and no concerning findings were noted. I have discussed that the opioids are for short term therapy only, and will not be refilled from the ED. Departure - Departure Disposition: 01 Home, Self Care Clinical Impression: Hypercalcemia Abdominal pain Qualifiers: Abdominal location: generalized Qualified Code(s): R10.84 - Generalized abdominal pain Condition: Good Instructions: ED Abdominal Pain Unkn Cause Male Prescriptions: HYDROmorphone [Dilaudid] 2 - 4 mg PO Q4H PRN #20 tablet PRN Reason: Pain >8 Comments: Tonight's test results do not provide a clear indication as to the cause of your abdominal pain. I have also reviewed the CT scan of your abdomen pelvis that was performed on yesterday's visit, and although there are number of abnormalities on that scan, there also were no findings that would confidently explain your abdominal discomfort. As we discussed, there is some question about whether you might be constipated (possibly more than normal amount of stool throughout your colon). For this reason, you are given milk of magnesia today along with 2 different types of enemas. It is reasonable to try the MiraLAX that was prescribed yesterday from this emergency department as per the label instructions. If, with these measures, you have large bowel movement(s) associated with relief of your symptoms, then this would be, of course, suggestive of constipation having been the cause of your abdominal pain. Jakob's x-rays of your abdomen did not suggest that you had a particularly large amount of stool in your colon, casting doubt on the diagnosis of constipation as a cause of your abdominal pain. However, further emergent testing is unlikely to reveal or suggest cause of your symptoms at this time. Contact your oncologist as well as your primary care provider on Tuesday when the offices are next open to arrange for immediately follow-up/reevaluation. You might benefit from further testing if your symptoms persist. In the meantime, I am electronically submitting a prescription for a stronger narcotic/opiate pain medication (hydromorphone, which was given to you in the IV form during your ER stay) to the [facility] in [place]. DO NOT TAKE THE HYDROMORPHONE AND THE VICODIN/HYDROCODONE (PRESCRIBED ON YOUR LAST ER VISIT) WITHIN 6 HOURS OF EACH OTHER. Take one or the other, whichever is more effective. I am prescribing a short course of narcotic pain medication for you. These are potentially dangerous and addictive medications that should be used carefully. These medications may constipate you. Take an [id number] stool softener (docusate) twice daily with plenty of water while taking these medications. If you go 24 hours without a bowel movement, take [id number] miralax, per package instructions. Do not drink or drive while taking these medications. If you received narcotic or sedating medications while in the emergency department, do not drive for 24 hours. Store this medication in a safe, secure place and out of reach of children. It is a violation of federal law to give or sell this medication to another person or to use in a manner other than prescribed. The ED will not refill narcotic prescriptions, including prescriptions lost or stolen. To dispose of unwanted medications: 1. [facility] [address] in [place] has a medication drop box. They accept prescription medications (in pil l form) Tuesday through Tuesday 9:00 a.m. to 5:00 p.m. 2. The [facility] accepts prescription medications (in pill form only) for disposal year round. Call for more information. 3. Contact the [facility] for the next [facility] sponsored prescription drug collection event. , [phone], or [phone]; Forms: PCP List Discharge Date/Time: 09/24/23 05:10
[2023-09-24] MEDS ORDERED: SODIUM CHLORIDE 0.9% 1,000 ML IV STA (01:06)
[2023-09-24 01:12] LABS: BASOPHILS % (AUTO) 0.6 %; EOSINOPHILS % (AUTO) 0.8 %; HCT - HEMATOCRIT 48.9 % (42.0-52.0); HGB - HEMOGLOBIN 15.7 g/dL (14.0-18.0); LYMPHOCYTES # (AUTO) 0.3 10^3/uL (1.5-3.5); MEAN CORPUSCULAR HEMOGLOBIN 30.4 pg (27.0-31.0); MEAN CORPUSCULAR HGB CONC 32.1 g/dL (32.0-36.0); MEAN CORPUSCULAR VOLUME 94.6 fL (80.0-94.0); MEAN PLATELET VOLUME 10.8 fL (7.4-11.4); MONOCYTES # (AUTO) 0.7 10^3/uL (0.0-1.0); MONOCYTES % (AUTO) 14.3 %; NEUTROPHILS # (AUTO) 3.7 10^3/uL (1.5-6.6); NEUTROPHILS % (AUTO) 77.7 %; PLT - PLATELET COUNT 90 10^3/uL (130-450); RED BLOOD COUNT 5.17 10^6/uL (4.70-6.10); RED CELL DISTRIBUTION WIDTH 15.9 % (12.0-15.0); WHITE BLOOD COUNT 4.8 x10^3/uL (4.8-10.8)
[2023-09-24] MEDS ORDERED: MAGNESIUM HYDROXIDE 2,400 MG/30 ML UDC PO STA (01:18)
[2023-09-24] MEDS ORDERED: SOAP SUDS ENEMA 1 EACH RC STA ×2 (01:19→02:44)
[2023-09-24 01:33] LABS: ALBUMIN/GLOBULIN RATIO 1.3 (1.0-2.2); BILIRUBIN,TOTAL 0.6 mg/dL (0.2-1.0); CREATININE 0.6 mg/dL (0.6-1.3); POTASSIUM 3.4 mmol/L (3.5-4.5)
--- NOTE | 2023-09-24 01:49 | XRAY Report ---
PROCEDURE: Abdomen Acute INDICATIONS: abd. Pain TECHNIQUE: 4 views of the abdomen were acquired. One view of the chest. COMPARISON: CT abdomen and pelvis 09/23/2023. FINDINGS: Surgical changes and devices: Right sided port with the catheter tip at the cavoatrial junction.. Chest: Lungs are clear. Heart size is normal. No pleural effusions. No pneumoperitoneum. Bowel: No pneumoperitoneum. The bowel gas pattern is normal. Stool load within normal limits. Soft tissues: No masses; visualized solid organ contours appear normal in size. No suspicious abdom inal calcifications. Bones: No suspicious bony abnormalities. IMPRESSION: No acute cardiopulmonary abnormality. Nonobstructive bowel gas pattern. Reviewed by: Oscar Angulo MD on 09/24/2023 1:47 AM [facility] Approved by: Oscar Angulo MD on 09/24/2023 1:47 AM [facility] Station ID: [id number]
[2023-09-24] MEDS ORDERED: MINERAL OIL ENEMA 133 ML BOTTLE RC STA (01:51)
[2023-09-24] MEDS ORDERED: HYDROmorphone 1 MG/ML CARPUJECT IVP STA ×2 (02:39→04:10)
[2023-09-24 02:57] LABS: BILIRUBIN,URINE NEGATIVE (NEGATIVE); GLUCOSE, URINE (UA) NEGATIVE (NEGATIVE); KETONES,URINE (UA) NEGATIVE (NEGATIVE); LEUKOCYTE ESTERASE, URINE NEGATIVE (NEGATIVE); NITRITE,URINE NEGATIVE (NEGATIVE); OCCULT BLOOD,URINE NEGATIVE (NEGATIVE); PROTEIN,URINE NEGATIVE (NEGATIVE); UROBILINOGEN,URINE 0.2 (NORMAL) E.U./dL (NORMAL)
[2023-09-24 03:11] LABS: CLARITY,URINE CLEAR (CLEAR)
[2023-09-24 05:14] VITALS: BP 145/102; O2SAT 92
== END 2023-09-24 05:10 | disposition home or self-care (01) ==
LOC: EDUNIT# → ED 00:50
DX: R10.84 Generalized abdominal pain (principal); E83.52 Hypercalcemia
CPT/HCPCS: 36415; 74022; 80053; 81003; 83690; 85025; 96361; 96374; 96376; 99284; 99285; A9270; J1170; 81001; 87086

== ENCOUNTER 2023-09-29 07:13 | Outpatient (CLI) | payer OTHER | END 2023-09-29 07:14 | disposition critical access hospital (66) | LOC: EMS 07:13 | DX: G89.3 Neoplasm related pain (acute) (chronic) (principal); R53.1 Weakness | CPT/HCPCS: A0425; A0427 ==

== ENCOUNTER 2023-09-29 07:48 | Emergency (ER) | payer OTHER ==
--- NOTE | 2023-09-29 08:52 | ED Physician Documentation ---
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 States pain not well controlled currently. Had elevated Ca of 12.5 couple days ago and [facility] [place] [facility] Oncology wants recheck.) Timing - details: Gradual onset, Still present, Waxing and waning Quality: Cramping, Aching, Pain (in abd, with aching/stabbing pain in back/spine area.) Radiation: No: Chest Improved by: Laying still Worsened by: Moving. No: Breathing, Palpation Associated symptoms: Nausea, Constipation. No: Fever, Vomiting, Diarrhea, Dysu silvio Similar symptoms before: Diagnosis (pain from cancer and mets. Has had abd pain from constipation as well.) Recently seen: Clinic (chemo at [facility] [place] few days ago.) Review of Systems Constitutional: denies: Fever, Chills, Myalgias Nose: denies: Rhinorrhea / runny nose, Congestion Throat: denies: Sore throat Cardiac: denies: Chest pain / pressure Respiratory: denies: Cough : denies: Incontinent Neurologic: reports: Generalized weakness. denies: Focal weakness, Numbness, Headache PD PAST MEDICAL HISTORY - Past Medical History Past Medical History: Yes Cardiovascular: Hypertension, High cholesterol Respiratory: None Neuro: None Endocrine/Autoimmune: None GI: Chronic constipation : None HEENT: Chronic vision loss Psych: None Musculoskeletal: None Derm: None Other Past Medical History: stomach cancer - Past Surgical History Past Surgical History: Yes Ortho: Spine surgery, Other - Present Medications Home Medications: Ambulatory Orders Medication Instructions Recorded Confirmed Ondansetron Odt [Zofran] 4 mg TL Q6H PRN #14 tablet 08/30/16 09/26/23 Cyclobenzaprine [Flexeril] 10 mg PO TID PRN #20 tablet 09/15/18 09/26/23 Naproxen [EC-Naproxen] 500 mg PO BID #20 12/23/20 09/26/23 Oxycodone HCl/Acetaminophen 1 each PO Q6H PRN #15 tablet 12/23/20 09/26/23 [Percocet 5-325 mg Tablet] methocarbamoL [Robaxin] 500 mg PO Q6H PRN #25 tablet 12/23/20 09/26/23 Atorvastatin [Lipitor] 40 mg PO DAILY 12/25/20 09/26/23 Losartan [Cozaar] 12.5 mg PO DAILY 12/25/20 09/26/23 Naproxen [EC-Naproxen] 500 mg PO DAILY 12/25/20 09/26/23 amLODIPine [Norvasc] 5 mg PO DAILY 12/25/20 09/26/23 OLANZapine [Olanzapine] 5 mg PO DAILY PRN 04/12/23 09/26/23 Lidocaine/Prilocain 2.5% Cream 5 gm TOP PRN PRN 04/25/23 09/26/23 [Emla 2.5% Cream] Omeprazole 20 mg PO DAILY 09/05/23 09/26/23 Sucralfate [Carafate] 1 gm PO PRN PRN 09/05/23 09/26/23 HYDROcodone/ACET 10/325 [[place] 10 1 tablet PO Q4-6H PRN #30 tablet 09/23/23 09/26/23 mg/325 mg] Sennosides/Docusate Sodium 1 each PO QDAC PRN #30 tablet 09/23/23 09/26/23 [Senna-Docusate Sodium Tablet] polyethylene glycoL 3350 [Miralax] 17 gm PO DAILY #15 packet 09/23/23 09/26/23 HYDROmorphone [Dilaudid] 2 - 4 mg PO Q4H PRN #20 tablet 09/24/23 09/26/23 HYDROmorphone [Dilaudid] 2 mg PO Q4H 09/26/23 09/26/23 fentaNYL 25 MCG PATCH [Duragesic 1 patch TD 09/26/23 25mcg] Naloxone HCl Nasal [Narcan Nasal] 4 mg NS PRN PRN 09/28/23 09/28/23 - Allergies Allergies/Adverse Reactions: Allergies Allergy/AdvReac Type Severity Reaction Status Date / Time No Known Drug Allergies Allergy Verified 09/29/23 08:00 - Social History Does the pt smoke?: No Smoking Status: Never smoker Does the pt drink ETOH?: Yes Does the pt have substance abuse?: No - Immunizations Immunizations are current?: Yes - POLST Patient has POLST: No PD ED PE NORMAL - Vitals Vital signs reviewed: Yes - General General: Alert and oriented X 3, Well developed/nourished, Other (appears in moderate pain from abd and right back. ) - Neck Neck: Supple, no meningeal sign, No adenopathy - Cardiac Cardiac: RRR, No murmur - Respiratory Respiratory: Clear bilaterally, Other (subcut port left chest without infection signs. ) - Abdomen Abdomen: Normal bowel sounds, Soft, No organomegaly, Other (tender mid abd to right upper. Right CVA tenderness. ) - Derm Derm: Normal color, Warm and dry - Extremities Extremities: No deformity, No tenderness to palpate, No edema, No calf tenderness / cord - Neuro Neuro: Alert and oriented X 3, No motor deficit, Normal speech Results - Vitals Vitals: Vital Signs - 24 hr 09/29/23 09/29/23 09/29/23 07:57 08:52 10:00 Temperature 36.6 C Heart Rate 87 82 67 Respiratory 15 20 14 Rate Blood Pressure 128/86 H 113/71 94/60 O2 Saturation 92 92 97 If not protocol 2 : Oxygen Flow, liters/minute 09/29/23 09/29/23 12:00 12:19 Temperature Heart Rate 74 73 Respiratory 15 20 Rate Blood Pressure 106/68 106/68 O2 Saturation 93 92 If not protocol : Oxygen Flow, liters/minute Oxygen O2 Source Room air - Labs Labs: Laboratory Tests 09/29/23 09/29/23 09/29/23 09:34 09:34 09:53 WBC 4.0 L RBC 4.93 Hgb 15.4 Hct 46.0 MCV 93.3 MCH 31.2 H MCHC 33.5 RDW 15.7 H Plt Count 103 L MPV 9.5 Neut # (Auto) 3.4 Lymph # (Auto) 0.2 L [place] # (Auto) 0.3 Eos # (Auto) 0.0 Baso # (Auto) 0.0 Absolute Nucleated RBC 0.00 Nucleated RBC % 0.0 Sodium 135 Potassium 3.5 Chloride 100 L Carbon Dioxide 28 Anion Gap 7.0 BUN 16 Creatinine 0.4 L Estimated GFR (MDRD) 222 Glucose 118 H Calcium 8.9 Phosphorus 1.9 L Total Bilirubin 0.6 AST 99 H ALT 80 H Alkaline Phosphatase 172 H Total Protein 6.7 Albumin 3.5 Globulin 3.2 Albumin/Globulin Ratio 1.1 Lipase 41 Urine Color YELLOW Urine Clarity CLEAR Urine pH 6.5 Ur Specific [place] 1.015 Urine Protein TRACE Urine Glucose (UA) NEGATIVE Urine Ketones NEGATIVE Urine Occult Blood NEGATIVE Urine Nitrite NEGATIVE Urine Bilirubin NEGATIVE Urine Urobilinogen 1 (NORMAL) Ur Leukocyte Esterase NEGATIVE Ur Microscopic Review NOT INDICATED Urine Culture Comments NOT INDICATED PD Medical Decision Making - ED course Complexity details: reviewed results (his calckium is normal at 8.9. Other chemistries also in good range. ), considered differential (here for pain control assistance, and was to get Ca rechecked per his Oncology team due to eleavted at 12.5 few days ago. Given IV fluids and Dilaudid, Toradol for pains here. Pain improved. ), d/w patient, d/w family (spouse), d/w program consultant (Provider from [facility] came to ER and talked with pt. Did not convey plan to me but pt relays the directions of increasing Fentanyl from 25 to 50 mcg patch. More continual with Tylenol/etc. His calcium is normal, so no other Rx for that part.) Departure - Departure Disposition: 01 Home, Self Care Clinical Impression: Exacerbation of chronic back pain, Abdominal pain, Status post chemotherapy Condition: Stable Record reviewed to determine appropriate education?: Yes Comments: As you discussed with the oncology provider from [facility] [place], increase your fentanyl to 2 patches (50 mg micrograms total (. Continue with your other short-term hydromorphone if needed. It would be fine to add Tylenol 500 to 650 mg 4 times daily regularly. In addition an anti-inflammatory such as naproxen/Aleve 1 to 2 tablets twice daily with food can be helpful as well, in particular in the days to week after the chemotherapies as there will be an inflammatory response related to that. Stay well-hydrated. Continue with your stool softeners and add fiber daily as well. Follow-up with your oncologist for further treatment ideas. Your calcium level was good here today and you were given some IV fluids for hydration. Forms: PCP List Discharge Date/Time: 09/29/23 12:24
[2023-09-29] MEDS ORDERED: HYDROmorphone 1 MG/ML CARPUJECT IVP STA ×2 (09:18→11:54)
[2023-09-29] MEDS ORDERED: KETOROLAC 15 MG/ML VIAL IVP STA (09:18)
[2023-09-29] MEDS ORDERED: SODIUM CHLORIDE 0.9% 1,000 ML IV STA (09:18)
[2023-09-29 09:40] LABS: BASOPHILS % (AUTO) 0.5 %; HGB - HEMOGLOBIN 15.4 g/dL (14.0-18.0); LYMPHOCYTES # (AUTO) 0.2 10^3/uL (1.5-3.5); LYMPHOCYTES % (AUTO) 5.6 %; MEAN CORPUSCULAR HEMOGLOBIN 31.2 pg (27.0-31.0); MEAN CORPUSCULAR HGB CONC 33.5 g/dL (32.0-36.0); MEAN CORPUSCULAR VOLUME 93.3 fL (80.0-94.0); MEAN PLATELET VOLUME 9.5 fL (7.4-11.4); MONOCYTES # (AUTO) 0.3 10^3/uL (0.0-1.0); MONOCYTES % (AUTO) 6.3 %; NEUTROPHILS # (AUTO) 3.4 10^3/uL (1.5-6.6); NEUTROPHILS % (AUTO) 87.1 %; PLT - PLATELET COUNT 103 10^3/uL (130-450); RED BLOOD COUNT 4.93 10^6/uL (4.70-6.10); RED CELL DISTRIBUTION WIDTH 15.7 % (12.0-15.0)
[2023-09-29 09:54] LABS: ALBUMIN 3.5 g/dL (3.2-5.5); ALBUMIN/GLOBULIN RATIO 1.1 (1.0-2.2); BILIRUBIN,TOTAL 0.6 mg/dL (0.2-1.0); CALCIUM 8.9 mg/dL (8.5-10.3); CREATININE 0.4 mg/dL (0.6-1.3); PHOSPHORUS 1.9 mg/dL (2.5-5.0); POTASSIUM 3.5 mmol/L (3.5-4.5); TOTAL PROTEIN 6.7 g/dL (6.4-8.9)
[2023-09-29 10:03] LABS: BILIRUBIN,URINE NEGATIVE (NEGATIVE); GLUCOSE, URINE (UA) NEGATIVE (NEGATIVE); KETONES,URINE (UA) NEGATIVE (NEGATIVE); LEUKOCYTE ESTERASE, URINE NEGATIVE (NEGATIVE); NITRITE,URINE NEGATIVE (NEGATIVE); OCCULT BLOOD,URINE NEGATIVE (NEGATIVE); PH,URINE 6.5 PH (5.0-7.5); PROTEIN,URINE TRACE mg/dL (NEGATIVE); UROBILINOGEN,URINE 1 (NORMAL) E.U./dL (NORMAL)
[2023-09-29 10:08] LABS: CLARITY,URINE CLEAR (CLEAR)
[2023-09-29 12:21] VITALS: BP 106/68; O2SAT 92
== END 2023-09-29 12:24 | disposition home or self-care (01) ==
LOC: EDUNIT# → ED 07:48
DX: R10.9 Unspecified abdominal pain (principal); M54.9 Dorsalgia, unspecified; G89.29 Other chronic pain; Z92.21 Personal history of antineoplastic chemotherapy; C15.9 Malignant neoplasm of esophagus, unspecified; C16.9 Malignant neoplasm of stomach, unspecified; C78.7 Secondary malignant neoplasm of liver and intrahepatic bile duct; C77.2 Secondary and unspecified malignant neoplasm of intra-abdominal lymph nodes; C79.51 Secondary malignant neoplasm of bone; I10 Essential (primary) hypertension; E78.00 Pure hypercholesterolemia, unspecified; Z79.899 Other long term (current) drug therapy
CPT/HCPCS: 36415; 80053; 81003; 83690; 84100; 85025; 96374; 96375; 96376; 99283; 99284; J1170; 81001; 87086

== ENCOUNTER 2023-10-01 08:36 | Outpatient (CLI) | payer OTHER | END 2023-10-01 23:59 | disposition critical access hospital (66) | LOC: EMS 08:36 | DX: R10.31 Right lower quadrant pain (principal); R10.32 Left lower quadrant pain; K62.89 Other specified diseases of anus and rectum; K59.03 Drug induced constipation; T40.2X5A Adverse effect of other opioids, initial encounter; G89.3 Neoplasm related pain (acute) (chronic) | CPT/HCPCS: A0425; A0427 ==

== ENCOUNTER 2023-10-01 09:11 | Emergency (ER) | payer OTHER ==
--- NOTE | 2023-10-01 10:09 | ED Physician Documentation ---
PD HPI ABD PAIN - Stated complaint Stated Complaint: CONSTIPATION/ABD PX - Chief complaint Chief Complaint: Abd Pain - History obtained from History obtained from: Patient, EMS - History of Present Illness Timing - onset: How many days ago (3) Timing - duration: Days (3) Timing - details: Gradual onset, Still present Quality: Sharp, Pain Location: LUQ Improved by: Laying still Worsened by: Moving, Position, Palpation Associated symptoms: Constipation Similar symptoms before: Diagnosis (constipation) Recently seen: Clinic, Emergency Dept - Additional information Additional information: Bigg Traore is a 58-year-old male who is being treated for 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 He has recently had to start pain regimen with narcotic pain reliever and has become constipated. He has had an enema last week in the emergency department that did help. He has been back into see his oncologist and has started a second line palliative chemotherapy. He is considering hospice. He complains of pain in his flanks bilaterally and feels that he is always dehydrated. He states that he has tried all of the pills for constipation is not having much luck with this. Review of Systems Constitutional: denies: Fever Eyes: denies: Decreased vision Ears: denies: Ear pain Nose: denies: Congestion Throat: denies: Sore throat Cardiac: denies: Chest pain / pressure Respiratory: denies: Dyspnea, Cough GI: reports: Abdominal Pain, Constipation PD PAST MEDICAL HISTORY - Past Medical History Cardiovascular: Hypertension, High cholesterol Respiratory: None Neuro: None Endocrine/Autoimmune: None GI: Chronic constipation, Other : None HEENT: Chronic vision loss Psych: None Musculoskeletal: None Derm: None Other Past Medical History: stomach cancer w/mets to bone - Past Surgical History Past Surgical History: Yes Ortho: Spine surgery, Other - Present Medications Home Medications: Ambulatory Orders Medication Instructions Recorded Confirmed Ondansetron Odt [Zofran] 4 mg TL Q6H PRN #14 tablet 08/30/16 09/26/23 Cyclobenzaprine [Flexeril] 10 mg PO TID PRN #20 tablet 09/15/18 09/26/23 Naproxen [EC-Naproxen] 500 mg PO BID #20 12/23/20 09/26/23 Oxycodone HCl/Acetaminophen 1 each PO Q6H PRN #15 tablet 12/23/20 09/26/23 [Percocet 5-325 mg Tablet] methocarbamoL [Robaxin] 500 mg PO Q6H PRN #25 tablet 12/23/20 09/26/23 Atorvastatin [Lipitor] 40 mg PO DAILY 12/25/20 09/26/23 Losartan [Cozaar] 12.5 mg PO DAILY 12/25/20 09/26/23 Naproxen [EC-Naproxen] 500 mg PO DAILY 12/25/20 09/26/23 amLODIPine [Norvasc] 5 mg PO DAILY 12/25/20 09/26/23 OLANZapine [Olanzapine] 5 mg PO DAILY PRN 04/12/23 09/26/23 Lidocaine/Prilocain 2.5% Cream 5 gm TOP PRN PRN 04/25/23 09/26/23 [Emla 2.5% Cream] Omeprazole 20 mg PO DAILY 09/05/23 09/26/23 Sucralfate [Carafate] 1 gm PO PRN PRN 09/05/23 09/26/23 HYDROcodone/ACET 10/325 [[place] 10 1 tablet PO Q4-6H PRN #30 tablet 09/23/23 09/26/23 mg/325 mg] Sennosides/Docusate Sodium 1 each PO QDAC PRN #30 tablet 09/23/23 09/26/23 [Senna-Docusate Sodium Tablet] polyethylene glycoL 3350 [Miralax] 17 gm PO DAILY #15 packet 09/23/23 09/26/23 HYDROmorphone [Dilaudid] 2 - 4 mg PO Q4H PRN #20 tablet 09/24/23 09/26/23 HYDROmorphone [Dilaudid] 2 mg PO Q4H 09/26/23 09/26/23 fentaNYL 25 MCG PATCH [Duragesic 1 patch TD 09/26/23 25mcg] Naloxone HCl Nasal [Narcan Nasal] 4 mg NS PRN PRN 09/28/23 09/28/23 Lactulose 30 ml PO TID #200 ml 10/01/23 - Allergies Allergies/Adverse Reactions: Allergies Allergy/AdvReac Type Severity Reaction Status Date / Time No Known Drug Allergies Allergy Verified 09/29/23 08:00 - Social History Does the pt smoke?: No Smoking Status: Never smoker Does the pt drink ETOH?: Yes Does the pt have substance abuse?: No - Immunizations Immunizations are current?: Yes - POLST Patient has POLST: No PD ED PE NORMAL - Vitals Vital signs reviewed: Yes (hypertensive) - General General: Alert and oriented X 3, No acute distress, Well developed/nourished - HEENT HEENT: Atraumatic, PERRL, EOMI, Other (dry mucous membranes cunha is intact. Interactive and not currently in pain) - Neck Neck: Supple, no meningeal sign, No bony TTP - Cardiac Cardiac: RRR, No murmur - Respiratory Respiratory: No respiratory distress, Clear bilaterally - Abdomen Abdomen: Soft, Non distended, No organomegaly, Other (mild diffuse tenderness with LUQ tenderness more specifically no garding or rebound. ) - Back Back: No CVA TTP, No spinal TTP - Derm Derm: Normal color, Warm and dry, No rash - Extremities Extremities: No deformity, No edema - Neuro Neuro: Alert and oriented X 3, doula 2-12 intact, No motor deficit, No sensory deficit, Normal speech Eye Opening: Spontaneous Motor: Obeys Commands Verbal: Oriented GCS Score: 15 - Psych Psych: Normal mood, Normal affect Results - Vitals Vitals: Vital Signs - 24 hr 10/01/23 10/01/23 09:45 11:48 Temperature 36.0 C L Heart Rate 88 82 Respiratory 18 18 Rate Blood Pressure 141/97 H 129/94 H O2 Saturation 96 98 Oxygen O2 Source Room air - Labs Labs: Laboratory Tests 10/01/23 10/01/23 10:30 10:30 WBC 4.3 L RBC 4.69 L Hgb 14.7 Hct 44.1 MCV 94.0 MCH 31.3 H MCHC 33.3 RDW 15.3 H Plt Count 100 L MPV 10.6 Neut # (Auto) 3.8 Lymph # (Auto) 0.2 L [place] # (Auto) 0.2 Eos # (Auto) 0.0 Baso # (Auto) 0.0 Absolute Nucleated RBC 0.00 Nucleated RBC % 0.0 Sodium 137 Potassium 3.8 Chloride 103 Carbon Dioxide 27 Anion Gap 7.0 BUN 13 Creatinine 0.5 L Estimated GFR (MDRD) 171 Glucose 165 H Calcium 8.7 Total Bilirubin 0.5 AST 100 H ALT 81 H Alkaline Phosphatase 186 H Total Protein 6.7 Albumin 3.6 Globulin 3.1 Albumin/Globulin Ratio 1.2 Lipase 47 Procedures - IVC sono (time) 1000 Bedside IVC sono: IVC measures (cm) (1.11), IVC collapsed c insp (cm) (complete), Dehydration (1+ liter deficit) PD Medical Decision Making - ED course Complexity details: reviewed old records, reviewed results, re-evaluated patient, considered differential, d/w patient ED course: 58-year-old male on palliative chemotherapy with narcotic induced constipation is found to be dehydrated on interrogation of the IVC with POCUS and he is administered sodium chloride and water by vein through a port. He is given an enema for treatment of constipation.This works. The patient has no pain and he is given instructions on constipation and a prescription for lactulose should he fail the use of milk of magnesia for narcotic induced constipation. Departure - Departure Disposition: 01 Home, Self Care Clinical Impression: Constipation due to opioid therapy, Dehydration Condition: Stable Instructions: ED Constipation, ED Dehydration Follow-Up: Zackary Lee MD [Physician No Access] - Prescriptions: Lactulose 30 ml PO TID #200 ml Comments: Bigg today it looks like your narcotic induced Bigg, today it looks like you have narcotic induced constipation and we were able to relieve this today with an enema. It also looks like you are a bit dehydrated. For the narcotic induced constipation I recommend a stimulant type laxative like milk of magnesia. If this does not work I have E scribed you some lactulose to use. This is a syrup that you can drink about an ounce 2-3 times per day and this will usually produce a bowel movement even with narcotic induced constipation. Forms: PCP List Discharge Date/Time: 10/01/23 13:02
[2023-10-01 10:41] LABS: BASOPHILS % (AUTO) 0.5 %; EOSINOPHILS % (AUTO) 0.5 %; HCT - HEMATOCRIT 44.1 % (42.0-52.0); HGB - HEMOGLOBIN 14.7 g/dL (14.0-18.0); LYMPHOCYTES # (AUTO) 0.2 10^3/uL (1.5-3.5); LYMPHOCYTES % (AUTO) 3.8 %; MEAN CORPUSCULAR HEMOGLOBIN 31.3 pg (27.0-31.0); MEAN CORPUSCULAR HGB CONC 33.3 g/dL (32.0-36.0); MEAN PLATELET VOLUME 10.6 fL (7.4-11.4); MONOCYTES # (AUTO) 0.2 10^3/uL (0.0-1.0); MONOCYTES % (AUTO) 5.6 %; NEUTROPHILS # (AUTO) 3.8 10^3/uL (1.5-6.6); NEUTROPHILS % (AUTO) 89.1 %; PLT - PLATELET COUNT 100 10^3/uL (130-450); RED BLOOD COUNT 4.69 10^6/uL (4.70-6.10); RED CELL DISTRIBUTION WIDTH 15.3 % (12.0-15.0); WHITE BLOOD COUNT 4.3 x10^3/uL (4.8-10.8)
[2023-10-01 11:00] LABS: ALBUMIN 3.6 g/dL (3.2-5.5); ALBUMIN/GLOBULIN RATIO 1.2 (1.0-2.2); BILIRUBIN,TOTAL 0.5 mg/dL (0.2-1.0); CALCIUM 8.7 mg/dL (8.5-10.3); CREATININE 0.5 mg/dL (0.6-1.3); POTASSIUM 3.8 mmol/L (3.5-4.5); TOTAL PROTEIN 6.7 g/dL (6.4-8.9)
[2023-10-01] MEDS ORDERED: SODIUM CHLORIDE 0.9% 1,000 ML IV STA (11:20)
[2023-10-01 12:16] VITALS: BP 129/94; O2SAT 98
[2023-10-01] MEDS ORDERED: HYDROmorphone 1 MG/ML CARPUJECT IVP STA (12:46)
== END 2023-10-01 13:02 | disposition home or self-care (01) ==
LOC: EDUNIT# → ED 09:11
DX: K59.03 Drug induced constipation (principal); T40.2X5A Adverse effect of other opioids, initial encounter; E86.0 Dehydration; C34.90 Malignant neoplasm of unspecified part of unspecified bronchus or lung; C16.9 Malignant neoplasm of stomach, unspecified; C78.7 Secondary malignant neoplasm of liver and intrahepatic bile duct; C78.80 Secondary malignant neoplasm of unspecified digestive organ; C77.9 Secondary and unspecified malignant neoplasm of lymph node, unspecified; I10 Essential (primary) hypertension; E78.00 Pure hypercholesterolemia, unspecified; Z79.899 Other long term (current) drug therapy
CPT/HCPCS: 36415; 80053; 83690; 85025; 96361; 96374; 96375; 99283

== ENCOUNTER 2023-10-29 08:15 | Outpatient (CLI) | payer OTHER | END 2023-10-29 23:59 | disposition critical access hospital (66) | LOC: EMS 08:15 | DX: F32.A Depression, unspecified (principal) | CPT/HCPCS: A0425; A0429 ==

== ENCOUNTER 2023-10-29 08:48 | Emergency (ER) | payer OTHER ==
--- NOTE | 2023-10-29 09:03 | ED Physician Documentation ---
PD HPI MHE - Stated complaint Stated Complaint: DEPRESSION - History obtained from History obtained from: Patient - History of Present Illness Primary symptom: Depression, Anxiety, Other (insomnia). No: Suicide attempt Timing - onset: How many days ago (has had situational depression with stomach cancer and chemo. Started on Lexaopro by PCP 4 days ago and has had anxiety, insomnia, agitation and feeling of worse depression. Some suicidal ideation but no plan. States "I'm done" with the cancer and chemo but states not meant as suicidal.) Contributing factors: Other (health). No: Substance abuse - ETOH, Substance abuse - drugs Review of Systems Constitutional: denies: Fever Nose: denies: Rhinorrhea / runny nose Throat: denies: Sore throat Respiratory: denies: Cough GI: reports: Nausea. denies: Vomiting, Diarrhea PD PAST MEDICAL HISTORY - Past Medical History Cardiovascular: Hypertension, High cholesterol Respiratory: None Neuro: None Endocrine/Autoimmune: None GI: Chronic constipation, Other (stomach cancer) : None HEENT: Chronic vision loss Psych: None Musculoskeletal: None Derm: None - Past Surgical History Past Surgical History: Yes Ortho: Spine surgery, Other - Present Medications Home Medications: Ambulatory Orders Medication Instructions Recorded Confirmed Ondansetron Odt [Zofran] 4 mg TL Q6H PRN #14 tablet 08/30/16 10/10/23 Cyclobenzaprine [Flexeril] 10 mg PO TID PRN #20 tablet 09/15/18 10/10/23 Naproxen [EC-Naproxen] 500 mg PO BID #20 12/23/20 10/10/23 Oxycodone HCl/Acetaminophen 1 each PO Q6H PRN #15 tablet 12/23/20 10/10/23 [Percocet 5-325 mg Tablet] methocarbamoL [Robaxin] 500 mg PO Q6H PRN #25 tablet 12/23/20 10/10/23 Atorvastatin [Lipitor] 40 mg PO DAILY 12/25/20 10/10/23 Losartan [Cozaar] 12.5 mg PO DAILY 12/25/20 10/10/23 Naproxen [EC-Naproxen] 500 mg PO DAILY 12/25/20 10/10/23 amLODIPine [Norvasc] 5 mg PO DAILY 12/25/20 10/10/23 OLANZapine [Olanzapine] 5 mg PO DAILY PRN 04/12/23 10/10/23 Lidocaine/Prilocain 2.5% Cream 5 gm TOP PRN PRN 04/25/23 10/10/23 [Emla 2.5% Cream] Omeprazole 20 mg PO DAILY 09/05/23 10/10/23 Sucralfate [Carafate] 1 gm PO PRN PRN 09/05/23 10/10/23 HYDROcodone/ACET 10/325 [[place] 10 1 tablet PO Q4-6H PRN #30 tablet 09/23/23 10/10/23 mg/325 mg] Sennosides/Docusate Sodium 1 each PO QDAC PRN #30 tablet 09/23/23 10/10/23 [Senna-Docusate Sodium Tablet] polyethylene glycoL 3350 [Miralax] 17 gm PO DAILY #15 packet 09/23/23 10/10/23 HYDROmorphone [Dilaudid] 2 - 4 mg PO Q4H PRN #20 tablet 09/24/23 10/10/23 HYDROmorphone [Dilaudid] 2 mg PO Q4H 09/26/23 10/10/23 fentaNYL 25 MCG PATCH [Duragesic 1 patch TD 09/26/23 25mcg] Naloxone HCl Nasal [Narcan Nasal] 4 mg NS PRN PRN 09/28/23 10/10/23 Lactulose 30 ml PO TID #200 ml 10/01/23 10/10/23 Fluconazole [Diflucan] 100 mg PO Q3D #3 tablet 10/29/23 traZODone [Desyrel] 50 mg PO HS PRN #10 tablet 10/29/23 - Allergies Allergies/Adverse Reactions: Allergies Allergy/AdvReac Type Severity Reaction Status Date / Time No Known Drug Allergies Allergy Verified 09/29/23 08:00 - Social History Does the pt smoke?: No Smoking Status: Never smoker Does the pt drink ETOH?: Yes Does the pt have substance abuse?: No - Immunizations Immunizations are current?: Yes - POLST Patient has POLST: No PD ED PE NORMAL - Vitals Vital signs reviewed: Yes - General General: Alert and oriented X 3, No acute distress, Well developed/nourished - Cardiac Cardiac: RRR, No murmur - Respiratory Respiratory: Clear bilaterally - Derm Derm: Normal color, Warm and dry Results - Vitals Vitals: Oxygen O2 Source Room air - Labs Labs: Laboratory Tests 10/29/23 10/29/23 09:26 09:26 WBC 2.9 L RBC 4.92 Hgb 15.1 Hct 45.1 MCV 91.7 MCH 30.7 MCHC 33.5 RDW 16.0 H Plt Count 115 L MPV 9.0 Neut # (Auto) 2.5 Lymph # (Auto) 0.2 L [place] # (Auto) 0.2 Eos # (Auto) 0.0 Baso # (Auto) 0.0 Absolute Nucleated RBC 0.00 Nucleated RBC % 0.0 Manual Slide Review Indicated WBC Morphology NORMAL APPEARANCE Platelet Estimate DECREASED (<130,000) Platelet Morphology NORMAL APPEARANCE RBC Morph Micro Appear NORMAL APPEARANCE Sodium 135 Potassium 3.5 Chloride 103 Carbon Dioxide 23 Anion Gap 9.0 BUN 11 Creatinine 0.5 L Estimated GFR (MDRD) 171 Glucose 118 H Calcium 7.9 L Magnesium 1.9 Total Bilirubin 0.6 AST 39 ALT 37 Alkaline Phosphatase 180 H Total Creatine Kinase 61 Total Protein 6.5 Albumin 3.6 Globulin 2.9 Albumin/Globulin Ratio 1.2 Lipase 14 Vitamin B12 974 H TSH 0.86 Salicylates < 1.5 Acetaminophen 0.5 Ethyl Alcohol < 10.0 PD Medical Decision Making - ED course Complexity details: reviewed results (lsbs are okay. SW talked with pt on safety plan and references for counseling. Can give meds for insomnia and to stop the Lexapro. He is safe for discharge. ), considered differential (seems side effect anxiety and insomnia, depression related to starrting Lexapro. Symptoms significant enough to stop the med. He had not taken it yesterday but still feeling badly today. ), d/w patient Departure - Departure Disposition: Home, Self Care Clinical Impression: Reactive depression, Side effect of medication, Anxiety Condition: Stable Prescriptions: traZODone [Desyrel] 50 mg PO HS PRN #10 tablet PRN Reason: Insomnia Fluconazole [Diflucan] 100 mg PO Q3D #3 tablet Comments: Continue with your alprazolam and you can go to twice a day again. Of course hold off on the S-Citalopram as that likely is giving you the acute exacerbation of some of your symptoms. The side effect of that should dissipate over several days. Continue your other usual medicines. You can add Diflucan antifungal tablet every third day for 3 doses to supplement the nystatin for your oral thrush. In the short-term you could add trazodone sleep medication at night to help with sleep. Stay well-hydrated otherwise. Follow-up with your primary care and oncology and also follow-up with counseling as that will be likely fairly helpful. I sent your prescriptions to your preferred pharmacy. Forms: PCP List Discharge Date/Time: 10/29/23 12:37
[2023-10-29 09:12] VITALS: BP 128/95; O2SAT 100
[2023-10-29 09:30] LABS: BASOPHILS % (AUTO) 0.3 %; EOSINOPHILS % (AUTO) 0.7 %; HCT - HEMATOCRIT 45.1 % (42.0-52.0); HGB - HEMOGLOBIN 15.1 g/dL (14.0-18.0); LYMPHOCYTES # (AUTO) 0.2 10^3/uL (1.5-3.5); LYMPHOCYTES % (AUTO) 7.9 %; MEAN CORPUSCULAR HEMOGLOBIN 30.7 pg (27.0-31.0); MEAN CORPUSCULAR HGB CONC 33.5 g/dL (32.0-36.0); MEAN CORPUSCULAR VOLUME 91.7 fL (80.0-94.0); MONOCYTES # (AUTO) 0.2 10^3/uL (0.0-1.0); MONOCYTES % (AUTO) 6.2 %; NEUTROPHILS # (AUTO) 2.5 10^3/uL (1.5-6.6); NEUTROPHILS % (AUTO) 84.6 %; PLT - PLATELET COUNT 115 10^3/uL (130-450); RED BLOOD COUNT 4.92 10^6/uL (4.70-6.10); WHITE BLOOD COUNT 2.9 x10^3/uL (4.8-10.8)
[2023-10-29 09:33] LABS: SLIDE REVIEW? Indicated
[2023-10-29 09:43] LABS: ACETAMINOPHEN 0.5 ug/mL; ALBUMIN 3.6 g/dL (3.2-5.5); ALBUMIN/GLOBULIN RATIO 1.2 (1.0-2.2); ALKALINE PHOSPHATASE 180 IU/L (42-121); ALT ALANINE AMINOTRANSFERASE 37 IU/L (10-60); AST ASPARTATE AMINOTRANSFERASE 39 IU/L (10-42); BILIRUBIN,TOTAL 0.6 mg/dL (0.2-1.0); BUN - BLOOD UREA NITROGEN 11 mg/dL (6-20); CALCIUM 7.9 mg/dL (8.5-10.3); CARBON DIOXIDE - CO2 23 mmol/L (21-32); CHLORIDE 103 mmol/L (101-111); CK- CREATINE KINASE 61 IU/L (30-223); CREATININE 0.5 mg/dL (0.6-1.3); ETOH - ETHANOL < 10.0 mg/dL; GFR - MDRD 171 (>89); GLUCOSE 118 mg/dL (74-104); LIPASE 14 U/L (11-82); MAGNESIUM 1.9 mg/dL (1.7-2.3); POTASSIUM 3.5 mmol/L (3.5-4.5); SODIUM 135 mmol/L (135-145); TOTAL PROTEIN 6.5 g/dL (6.4-8.9)
[2023-10-29 09:44] LABS: SALICYLATE < 1.5 mg/dL
[2023-10-29 09:56] LABS: PLATELET ESTIMATE, MANUAL DECREASED (<130,000) (NORMAL); PLATELET MORPHOLOGY NORMAL APPEARANCE (NORMAL); RBC MORPHOLOGY (MULTIPLE) NORMAL APPEARANCE (NORMAL); WBC MORPHOLOGY (MULTIPLE) NORMAL APPEARANCE (NORMAL)
[2023-10-29 09:59] LABS: THYROID STIMULATING HORMONE 0.86 uIU/mL (0.34-5.60)
[2023-10-29] MEDS ORDERED: LORazepam 1 MG TABLET PO STA (11:53)
[2023-10-29] MEDS ORDERED: FLUCONAZOLE 100 MG TABLET PO STA (11:53)
== END 2023-10-29 12:37 | disposition home or self-care (01) ==
LOC: EDUNIT# → ED 08:48
DX: F41.9 Anxiety disorder, unspecified (principal); F32.9 Major depressive disorder, single episode, unspecified; T43.225A Adverse effect of selective serotonin reuptake inhibitors, initial encounter; B37.0 Candidal stomatitis; G47.00 Insomnia, unspecified; C16.9 Malignant neoplasm of stomach, unspecified; Z79.899 Other long term (current) drug therapy
CPT/HCPCS: 36415; 80053; 80307; 80320; 80329; 82550; 82607; 83690; 83735; 84443; 85025; 99283; A9270; J8499

== ENCOUNTER 2023-12-11 22:53 | Outpatient (CLI) | payer OTHER | END 2023-12-11 22:54 | disposition EMS.NT | LOC: EMS 22:53 | DX: R53.1 Weakness (principal) ==